=== PATIENT | female | born 1975 | race Caucasian/White ===

== ENCOUNTER 2022-12-15 17:27 | Emergency (ER) | payer OTHER, MEDICAID, SELFPAY ==
[2022-12-15 18:10] VITALS: BP 154/91; PULSE 81; RESP 20; TEMP 37.2; O2SAT 100; BMI 27.4
--- NOTE | 2022-12-15 18:24 | EXP.UTC ---
Discharge Plan Disposition Patient Disposition: Home, Self-Care Condition: Good Prescriptions Prescriptions: New phenazopyridine [Pyridium] 200 mg tablet 200 mg PO Q8H 2 Days Qty: 6 0RF sulfamethoxazole-trimethoprim [Bactrim DS] 800-160 mg Tablet 1 tab PO BID Qty: 14 0RF Referrals Follow up/Referrals: Clayton German DO [Primary Care Provider] - See instructions Activity Restrictions/Add. Instructions Additional Instructions/Restrictions: Drink plenty of fluids. Take tylenol or ibuprofen for pain or fever. Take the medications as directed. Follow up with your regular doctor. GO TO THE ER FOR ANY WORSENING SYMPTOMS The pyridium will make your urine turn orange, this is an expected side effect. It will stain your clothes if it comes into contact with them. We will culture the urine. That will tell what bacteria is causing your infection and which antibiotics will treat it best. Sometimes the first antibiotic we prescribe turns out to not work against different bacteria. So, make sure you follow up within 3 days if you are not getting better. Clinical Impressions Clinical Impression: UTI (urinary tract infection) Instructions Patient Instructions: DI for Urinary Tract Infection (UTI) Discharge ED Provider: Torsten Jimenez [facility] General Stated complaint: possible uti Time Seen by Provider: 12/15/22 18:24 History of Present Illness Provider Complaint: She states that for the past 2 days she has had dysuria, urinary frequency and low back pain. Related Data Previous Rx's Medication Instructions Recorded phenazopyridine 200 mg tablet 200 mg PO Q8H 2 days #6 tabs 12/15/22 (Pyridium) sulfamethoxazole 800 1 tab PO BID #14 tabs 12/15/22 mg-trimethoprim 160 mg tablet (Bactrim DS) Allergies Allergy/AdvReac Type Severity Reaction Status Date / Time No Known Allergies Allergy Verified 12/15/22 18:29 [facility] Disclaimer: The information contained in this section may have been updated after the patient was seen, as this information can be updated by other users. Social History Smoking Status: Never smoker alcohol intake: never current occupational status: employed Travel in the last 8 weeks: None ROS Obtained: Yes All systems reviewed & no additional complaints except as documented Constitutional Constitutional: Reports system reviewed and no additional complaints, except as documented, Denies chills and Denies fever(s) Eyes Eyes: Denies eye discharge ENT Ears, Nose, Mouth, and Throat: Denies dysphagia, Denies sore throat and Denies throat swelling Cardiovascular Cardiovascular: Denies chest pain and Denies dyspnea Respiratory Respiratory: Denies chest congestion, Denies cough and Denies dyspnea Gastrointestinal Gastrointestingal: Denies abdominal pain, constipation, diarrhea, dysphagia, nausea or vomiting Genitourinary Female Genitourinary: Reports as per HPI, Reports dysuria, Reports sexual dysfunction, Reports urinary frequency, Denies urinary incontinence and Reports urinary hesitancy Musculoskeletal Musculoskeletal: Denies arthralgias and Reports back pain Integumentary/Breasts Skin/Breast: Denies rash Neurologic Neurologic: Denies paresthesias Allergic/Immunologic Allergic/Immunologic: Denies throat swelling Physical Exam General General appearance: alert and in no apparent distress Head Head exam: atraumatic and normocephalic Eye Eye exam: Present normal appearance, PERRL and EOMI ENT ENT exam: Present normal exam, mucous membranes moist, TM's normal bilaterally and normal external ear exam Neck Neck exam: Present normal inspection, full ROM and trachea midline; Absent tenderness, meningismus or lymphadenopathy Chest Chest inspection: Present normal inspection and symmetric chest wall rise; Absent tenderness Respiratory Respiratory exam: Present normal lung sounds bilaterally; Absent respi
[2022-12-15 18:31] LABS: Apearance,Urine Clear (Clear); Color,Urine Yellow (Yellow); Glucose,Urine (UA) Negative (Negative); Protein,Urine Negative (Negative); Specific Gravity, Urine 1.015 (1.005-1.030)
[2022-12-15 18:32] LABS: Bilirubin,Urine Negative (Negative); Blood, Urine Trace (Negative); Ketones,Urine Negative (Negative); UTC Leukocyte Esterase,Urine 3+ (Negative); UTC Nitrate,Urine Negative (Negative); Urobilinogen,Urine 0.2 EU/dl (0.2)
[2022-12-15 19:22] VITALS: BP 154/91; PULSE 81; RESP 20; TEMP 37.2; O2SAT 100
== END 2022-12-15 19:21 | disposition home or self-care (01) ==
PROVIDERS: Emergency Provider Nurse Practitioner Family; PCP Family Medicine
DX: N39.0 Urinary tract infection, site not specified (principal); B96.20 Unspecified Escherichia coli [E. coli] as the cause of diseases classified elsewhere
CPT/HCPCS: 81003; 87086; 87088; 87186; 99212; 99214; G0463

== ENCOUNTER 2023-04-15 09:37 | Emergency (ER) | payer OTHER, MEDICAID, SELFPAY ==
[2023-04-15 09:44] LABS: Microscopic, Urine URINE MICROSCOPIC (MICROSCOPIC)
[2023-04-15 09:45] VITALS: BP 157/80; PULSE 121; RESP 20; TEMP 37.3; O2SAT 94; BMI 27.1
[2023-04-15 09:49] LABS: Appearance,Urine SL CLOUDY (Clear); Bilirubin,Urine Negative (Negative); Blood, Urine 2+ (Negative); Color,Urine YELLOW (Yellow); Glucose,Urine (UA) Negative (Negative); Ketones,Urine Negative (Negative); Leukocyte Esterase,Urine 2+ (Negative); Nitrate,Urine POSITIVE (Negative); Protein,Urine 1+ (Negative); Urobilinogen,Urine 0.2 EU/dl (0.2)
[2023-04-15 10:00] VITALS: BP 118/68; PULSE 104; O2SAT 96
[2023-04-15 10:05] LABS: Bacteria,Urine 3+ /lpf; Fine Granular Casts,Urine Occasional #/lpf (0); Mucus,Urine Trace /lpf; WBC,Urine 50-100 #/hpf (0-3)
--- NOTE | 2023-04-15 10:14 | PC.NURSE ---
Rounded on patient; no needs at this time. Family at BS
[2023-04-15 10:27] LABS: Basophils % 0.1 % (0.1-2.0); Eosinophils % 0.4 % (0.1-12.0); Hematocrit 42.9 % (37.0-47.0); Lymphocytes # 0.6 K/mm3 (0.7-4.5); Lymphocytes % 5.5 % (10-50); Mean Corpuscular HGB Conc 32.7 g/dL (31.8-35.4); Mean Corpuscular Hemoglobin 29.9 pg (27.0-31.2); Mean Corpuscular Volume 91.5 fl (81-99); Mean Platelet Volume 8.8 fl (7.4-10.4); Monocytes # 0.7 K/mm3 (0.1-1.0); Monocytes % 6.4 % (1.7-9.3); Neutrophils # 9.9 K/mm3 (1.8-7.8); Neutrophils % 87.5 % (37.0-80.0); Platelet Count 241 K/mm3 (142-424); Red Blood Count 4.69 M/mm3 (4.20-5.40); Red Cell Distribution Width 12.9 % (11.5-17.5); White Blood Count 11.3 K/mm3 (4.8-10.8)
[2023-04-15 10:30] LABS: Urine Pregnancy, HCG Qual. Negative (Negative)
[2023-04-15 10:32] LABS: MANUAL DIFFERENTIAL MANUAL DIFFERENTIAL (MANUAL DIFF)
[2023-04-15 10:34] LABS: Alanine Aminotransferase 23 U/L (12-78); Albumin Level 4.3 g/dl (3.5-5.0); Albumin/Globulin Ratio 1.4 (1.1-1.8); Alkaline Phosphatase 79 U/L (38-126); Anion Gap 11.6 mEq/L (5-15); Aspartate Amino Transferase 29 U/L (14-36); Bilirubin,Total 0.7 mg/dl (0.2-1.3); Blood Urea Nitrogen 12 mg/dl (7-17); Calcium 8.9 mg/dl (8.4-10.2); Carbon Dioxide 27 mmol/L (22.0-30.0); Chloride 105 mmol/L (98-107); Creatinine Clearance Estimated 94 mL/min (50-200); Estimated Glomerular Filt Rate 78 ml/min (>60); GFR (African American) 94 ML/MIN (>60); Globulin 3.1 g/dL (1.3-3.2); Glucose 109 mg/dl (74-100); Potassium 3.6 mmoL/L (3.5-5.1); Sodium 140 mmol/L (136-145); Total Protein,Serum 7.4 g/dl (6.3-8.2)
[2023-04-15 10:49] LABS: Lymphocytes % 1 % (10-50); Monocytes % 8 % (2-9); Neutrophils % 91 % (42-76); Platelet Estimate Normal; RBC Morphology Normal; Total Cells Counted 100
--- NOTE | 2023-04-15 11:02 | HMH.EDGENADL ---
Discharge Plan Disposition Patient Disposition: Home, Self-Care Prescriptions Prescriptions: New cefdinir 300 mg capsule 300 mg PO BID 14 Days Qty: 28 0RF ondansetron 4 mg tablet,disintegrating 4 mg PO Q6H PRN (Reason: nausea and vomiting) Qty: 10 0RF No Action phenazopyridine [Pyridium] 200 mg tablet 200 mg PO Q8H 2 Days Qty: 6 0RF nitrofurantoin monohyd/m-cryst [Macrobid] 100 mg capsule 100 mg PO Q12H 7 Days Qty: 14 0RF Rx Instructions: must administer with a meal/food Referrals Follow up/Referrals: Provider,Referral, MD [Primary Care Provider] - See instructions Activity Restrictions/Add. Instructions Additional Instructions/Restrictions: Take antibiotic twice daily as prescribed. Zofran for nausea. Take Tylenol 1000 mg every 6 hours (4 times daily) and ibuprofen 400 mg every 6 hours (4 times daily) as needed with food and water to prevent GI upset and kidney damage. Be sure to stay plenty hydrated. See your family doctor within 48 hours to establish care and ensure improvement in symptoms as well as repeat urine. If you have any worsening of your condition or any other concerning signs or symptoms, return to the emergency department or your primary care doctor for further evaluation. Clinical Impressions Clinical Impression: Pyelonephritis Instructions Patient Instructions: DI for Acute Abdominal Pain Discharge ED Provider: Rupert Freire General Adult HPI General Chief complaint: Abdominal Pain Stated complaint: chills, back pain Time Seen by Provider: 04/15/23 09:42 Mode of Arrival: Ambulatory Source of Information: Patient Limitations: No Limitations Description of Symptoms (Recalled from ER Triage Doc. by RN): pt to ed states she was driving yesterday, had sudden onset of mid back pain, chills. pt states she woke up today had an episode of emesis associated with abd cramping. History of Present Illness HPI narrative: 47-year-old female presenting with left flank pain. Patient states multifactorial, she was driving when she had sudden onset left flank pain. Radiates anteriorly to her left lower quadrant. Associated with fevers, chills, diaphoresis. Vomiting is nonbloody, nonbilious as well. Denies dysuria or hematuria, frequency or urgency. Has associated suprapubic abdominal pain. Denies abnormal vaginal discharge or bleeding, constipation, diarrhea, history of kidney stones, or any other concerns. Related Data Previous Rx's Medication Instructions Recorded phenazopyridine 200 mg tablet 200 mg PO Q8H 2 days #6 tabs 12/15/22 (Pyridium) nitrofurantoin 100 mg PO Q12H 7 days #14 caps 12/23/22 monohydrate/macrocrystals 100 mg capsule (Macrobid) cefdinir 300 mg capsule 300 mg PO BID 14 days #28 caps 04/15/23 ondansetron 4 mg disintegrating 4 mg PO Q6H PRN nausea and 04/15/23 tablet vomiting #10 tabs Allergies Allergy/AdvReac Type Severity Reaction Status Date / Time sulfamethoxazole Allergy Verified 12/23/22 11:13 [From Bactrim] trimethoprim [From Bactrim] Allergy Verified 12/23/22 11:13 [facility] Disclaimer: The information contained in this section may have been updated after the patient was seen, as this information can be updated by other users. Social History (Updated 12/16/22 @ 15:13 by Torsten Jimenez APRN) Smoking Status: Never smoker alcohol intake: never current occupational status: employed Travel in the last 8 weeks: None ROS Obtained: Yes All systems reviewed & no additional complaints except as documented Physical Exam General General appearance: alert, in no apparent distress and other ( ) Head Head exam: atraumatic and normocephalic Eye Eye exam: Present normal appearance, PERRL and EOMI ENT ENT exam: Present mucous membranes moist Neck Neck exam: Present normal inspection, full ROM and trachea midline Respiratory Respiratory exam: Absent respiratory distress, wheezes, stridor, accessory muscle use or prolonged
[2023-04-15 11:10] LABS: Lactic Acid 0.8 mmol/L (0.7-2.1)
[2023-04-15 12:38] VITALS: BP 121/76; PULSE 87; O2SAT 100
[2023-04-15 12:40] VITALS: BP 121/76; PULSE 87; RESP 17; TEMP 36.8; O2SAT 100
== END 2023-04-15 12:40 | disposition home or self-care (01) ==
PROVIDERS: Emergency Provider Emergency Medicine
DX: N12 Tubulo-interstitial nephritis, not specified as acute or chronic (principal)
CPT/HCPCS: 80053; 81001; 81025; 83605; 85007; 85025; 87040; 87077; 87086; 87088; 87186; 96361; 96372; 96374; 96375; 99285; J0696; J2405

== ENCOUNTER 2023-04-16 10:35 | Inpatient (IN) | payer OTHER, MEDICAID, SELFPAY ==
[2023-04-16 10:37] VITALS: BP 135/69; PULSE 104; RESP 16; TEMP 36.6; O2SAT 100; BMI 27.1
--- NOTE | 2023-04-16 10:59 | PC.NURSE ---
Evelin provided. MD at bedside. Pt updated on plan of care. Call light within reach. No further complaints. 12/22 pain.
[2023-04-16 11:04] LABS: Basophils % 0.2 % (0.1-2.0); Eosinophils # 0.1 K/mm3 (0.0-0.4); Eosinophils % 0.8 % (0.1-12.0); Hematocrit 40.4 % (37.0-47.0); Hemoglobin 12.7 g/dL (12.2-16.2); Lymphocytes # 1.1 K/mm3 (0.7-4.5); Mean Corpuscular HGB Conc 31.4 g/dL (31.8-35.4); Mean Corpuscular Hemoglobin 29.8 pg (27.0-31.2); Mean Corpuscular Volume 94.6 fl (81-99); Mean Platelet Volume 8.7 fl (7.4-10.4); Monocytes # 0.3 K/mm3 (0.1-1.0); Monocytes % 3.3 % (1.7-9.3); Neutrophils # 7.5 K/mm3 (1.8-7.8); Neutrophils % 83.6 % (37.0-80.0); Platelet Count 209 K/mm3 (142-424); Red Blood Count 4.27 M/mm3 (4.20-5.40); White Blood Count 8.9 K/mm3 (4.8-10.8)
--- NOTE | 2023-04-16 11:09 | PC.NURSE ---
Additional warm blankets provided. No further complaints.
[2023-04-16 11:11] LABS: Lactic Acid 1.8 mmol/L (0.7-2.1)
[2023-04-16 11:12] LABS: Anion Gap 10.5 mEq/L (5-15); Blood Urea Nitrogen 9 mg/dl (7-17); Calcium 8.7 mg/dl (8.4-10.2); Carbon Dioxide 28 mmol/L (22.0-30.0); Chloride 104 mmol/L (98-107); Creatinine Clearance Estimated 94 mL/min (50-200); Estimated Glomerular Filt Rate 78 ml/min (>60); GFR (African American) 94 ML/MIN (>60); Glucose 115 mg/dl (74-100); Potassium 3.5 mmoL/L (3.5-5.1); Sodium 139 mmol/L (136-145)
[2023-04-16 11:14] LABS: Microscopic, Urine URINE MICROSCOPIC (MICROSCOPIC)
[2023-04-16 11:19] LABS: Appearance,Urine CLEAR (Clear); Bilirubin,Urine Negative (Negative); Blood, Urine 3+ (Negative); Color,Urine YELLOW (Yellow); Glucose,Urine (UA) Negative (Negative); Ketones,Urine TRACE (Negative); Leukocyte Esterase,Urine 1+ (Negative); Nitrate,Urine Negative (Negative); Protein,Urine TRACE (Negative); Specific Gravity, Urine 1.025 (1.005-1.030)
--- NOTE | 2023-04-16 11:26 | PC.NURSE ---
notified care management of admission, spoke with [place] notified lab of new orders on pt.
--- NOTE | 2023-04-16 11:34 | HMH.EDGENADL ---
Discharge Plan Disposition Patient Disposition: Admitted Chief Complaint: Recheck/Abnormal Lab/Rx Prescriptions Prescriptions: No Action phenazopyridine [Pyridium] 200 mg tablet 200 mg PO Q8H 2 Days Qty: 6 0RF nitrofurantoin monohyd/m-cryst [Macrobid] 100 mg capsule 100 mg PO Q12H 7 Days Qty: 14 0RF Rx Instructions: must administer with a meal/food cefdinir 300 mg capsule 300 mg PO BID 14 Days Qty: 28 0RF ondansetron 4 mg tablet,disintegrating 4 mg PO Q6H PRN (Reason: nausea and vomiting) Qty: 10 0RF Referrals Follow up/Referrals: Provider,Referral, MD [Primary Care Provider] - See instructions Clinical Impressions Clinical Impression: UTI (urinary tract infection), Pyelonephritis, Bacteremia Discharge ED Provider: Rupert rFeire General Adult HPI General Chief complaint: Recheck/Abnormal Lab/Rx Stated complaint: irragular labs Time Seen by Provider: 04/16/23 10:39 Mode of Arrival: Ambulatory Source of Information: Patient Limitations: No Limitations Description of Symptoms (Recalled from ER Triage Doc. by RN): Pt presents to ED r/t ER MD Freire request for pt to come back to ER r/t blood cultures from yesterday. Pt seen in this ED yesterday treated for UTI d/c on cefdinir. Pt reports did have fever lastnight with chills and has continued to have lower back pain. History of Present Illness HPI narrative: This is a 47-year-old female with history of recently diagnosed UTI 1 day prior to arrival presenting with medical evaluation after positive blood cultures. Patient was seen by me 1 day prior to arrival and diagnosed with pyelonephritis. Started on cefdinir after 1 dose of ceftriaxone IV in the emergency department. Blood cultures returned positive today for E. coli, so patient was contacted. Patient states last fever was 1 night prior to arrival and responsive to Tylenol and Motrin. No more vomiting, dysuria or hematuria. Patient states she feels better overall, but still generally poor. Related Data Previous Rx's Medication Instructions Recorded phenazopyridine 200 mg tablet 200 mg PO Q8H 2 days #6 tabs 12/15/22 (Pyridium) nitrofurantoin 100 mg PO Q12H 7 days #14 caps 12/23/22 monohydrate/macrocrystals 100 mg capsule (Macrobid) cefdinir 300 mg capsule 300 mg PO BID 14 days #28 caps 04/15/23 ondansetron 4 mg disintegrating 4 mg PO Q6H PRN nausea and 04/15/23 tablet vomiting #10 tabs Allergies Allergy/AdvReac Type Severity Reaction Status Date / Time sulfamethoxazole Allergy Verified 12/23/22 11:13 [From Bactrim] trimethoprim [From Bactrim] Allergy Verified 12/23/22 11:13 [facility] Disclaimer: The information contained in this section may have been updated after the patient was seen, as this information can be updated by other users. Social History (Updated 12/16/22 @ 15:13 by Torsten Jimenez APRN) Smoking Status: Never smoker alcohol intake: never current occupational status: employed Travel in the last 8 weeks: None ROS Obtained: Yes All systems reviewed & no additional complaints except as documented Physical Exam General General appearance: alert, in no apparent distress and other ( ) Head Head exam: atraumatic and normocephalic Eye Eye exam: Present normal appearance, PERRL and EOMI ENT ENT exam: Present mucous membranes moist Neck Neck exam: Present normal inspection, full ROM and trachea midline Respiratory Respiratory exam: Absent respiratory distress, wheezes, stridor, accessory muscle use or prolonged expiratory phase Cardiovascular Cardiovascular exam: Present regular rate and normal rhythm Abdominal Exam Abdominal exam: Present soft; Absent distention, tenderness, guarding, rebound, rigidity or normal bowel sounds Extremities Exam Extremities exam: Absent edema Neurological Exam Neurological exam: Present alert, oriented X3, CN II-XII intact and normal gait; Absent motor sensory deficit Skin Skin exam: Present warm and dry
[2023-04-16 11:37] LABS: Bacteria,Urine 1+ /lpf; WBC,Urine 20-50 #/hpf (0-3)
--- NOTE | 2023-04-16 11:43 | PC.NURSE ---
ice water provided. pt c/o left sided headache. MD notified. Awaiting orders.
[2023-04-16 11:55] LABS: Procalcitonin 0.203 ng/mL (0.0-2.0)
--- NOTE | 2023-04-16 12:03 | PC.NURSE ---
warehouse administrative assistant reports working on bed assignment for pt.
--- NOTE | 2023-04-16 12:14 | PC.NURSE ---
Report provided to JACQUIE Ramos
--- NOTE | 2023-04-16 12:15 | PC.NURSE ---
Patient updated on plan of care; report provided to inpatient.
--- NOTE | 2023-04-16 12:17 | HMH.PHAINT1 ---
- Pharmacy Intervention Comments: MEDICATION RECONCILIATION COMPLETED ON PATIENT USING DISCHARGE SUMMARY FROM ER VISIT YESTERDAY. -DOMINIC CASTRO, ROGERD
[2023-04-16 12:21] VITALS: BP 135/69; PULSE 98; RESP 16; TEMP 36.6; O2SAT 100
[2023-04-16 12:25] VITALS: BP 138/80; PULSE 100; RESP 18; TEMP 36.7; O2SAT 100; BMI 29.9
--- NOTE | 2023-04-16 13:37 | EXP.HP ---
History of Present Illness *Admission Date: 04/16/23 *Reason for visit:: positive blood cultures *History of present illness: February is a 47 year old female who presented to the ED after being instructed to come because of blood cultures growing GNR. Yesterday she presented to the ED with 1 day of nausea, vomiting and left flank pain; she was found to have a UTI and recommended admission by the ED provider but pt decided to receive treatment at home and said she would come back if cultures were concerning. Her urine culture is growing >100K E. coli. She has been very healthy as far as she is aware; she doesn't take medications on a regular basis and has never had kidney stones. The one other time she had a UTI was around a month ago for which she completed antibiotics. she denies dysuria, chest pain, shortness of breath, diarrhea and abdominal pain. Initial vitals: BP 135/69 - P 104 - RR 16 - SpO2 100% RA - T 97.9 F Initial workup: CBC with 8.9K wbcs procalcitonin is 0.2, lactate 1.8 ua with 20-50 wbcs urine culture collected blood cultures collected blood culture from 04/15 with GNR Urine culture from 04/15 with >100K E. coli noriega sensitive PFSH PFSH Disclaimer: The information contained in this section may have been updated after the patient was seen, as this information can be updated by other users. Social History (Updated 12/16/22 @ 15:13 by Torsten Jimenez APRN) Smoking Status: Never smoker alcohol intake: never current occupational status: employed Travel in the last 8 weeks: None Review of Systems Review of Systems Review of systems:: pertinent systems reviewed and negative unless documented below Constitutional Constitutional: Reports headache(s) ENT Ears, Nose, Mouth, and Throat: Reports headache(s) *Musculoskeletal Musculoskeletal: Reports back pain *Neurologic Neurologic: Reports headache(s) Meds Home Medications and Allergies Home Medications Medication Instructions Recorded Confirmed Type cefdinir 300 mg capsule 300 mg PO BID Infection 04/16/23 04/16/23 History ondansetron 4 mg disintegrating 4 mg PO Q6HP PRN nausea and 04/16/23 04/16/23 History tablet vomiting New Prescriptions to Start Prescriptions: Allergies Allergy/AdvReac Type Severity Reaction Status Date / Time sulfamethoxazole Allergy Verified 12/23/22 11:13 [From Bactrim] trimethoprim [From Bactrim] Allergy Verified 12/23/22 11:13 Exam Data for Last 24 hours Vital signs and Labs for Last 24 Hours: Temp Pulse Resp BP Pulse Ox O2 Del Method 98.0 F 100 H 18 138/80 100 Room Air 04/16/23 12:25 04/16/23 12:25 04/16/23 12:25 04/16/23 12:25 04/16/23 12:25 04/16/23 13:27 Laboratory Results - last 24 hr 04/16/23 10:52: Procalcitonin 0.203 04/16/23 10:58: WBC 8.9, RBC 4.27, Hgb 12.7, Hct 40.4, MCV 94.6, MCH 29.8, MCHC 31.4 L, RDW 13.0, Plt Count 209, MPV 8.7, Neut % (Auto) 83.6 H, Lymph % (Auto) 12.0, [place] % (Auto) 3.3, Eos % (Auto) 0.8, Baso % (Auto) 0.2, Neut # (Auto) 7.5, Lymph # (Auto) 1.1, [place] # (Auto) 0.3, Eos # (Auto) 0.1, Baso # (Auto) 0.0, Sodium 139, Potassium 3.5, Chloride 104, Carbon Dioxide 28, Anion Gap 10.5, BUN 9, Creatinine 0.80, Estimated Creat Clear 94, Estimated GFR 78, Est GFR ( Amer) 94, Glucose 115 H, Lactate 1.8, Calcium 8.7 04/16/23 11:00: Urine Color Yellow, Urine Appearance Clear, Urine pH 6.0, Ur Specific [place] 1.025, Urine Protein Trace, Urine Glucose (UA) Negative, Urine Ketones Trace, Urine Blood 3+, Urine Nitrate Negative, Urine Bilirubin Negative, Urine Urobilinogen 1.0, Ur Leukocyte Esterase 1+ A, Urine RBC 5-10, Urine WBC 20-50, Urine Bacteria 1+ I & O for Last 24 hours: Intake & Output 04/13/23 04/14/23 04/15/23 04/16/23 23:59 23:59 23:59 23:59 Weight 74.134 kg Constitutional Constitutional: no acute distress *Routine HEENT Exam Head: Present normocephalic Eye: Present EOMI and PERRL ENT: Present mucous membranes moist *Routine Neck Exa
--- NOTE | 2023-04-16 14:33 | CT_ITS ---
FINAL REPORT CLINICAL HISTORY: pyelonephritis COMPARISON: None FINDINGS: Axial CT images of the abdomen and pelvis were obtained without intravenous contrast. Coronal and sagittal reformatted images were also obtained.This study was performed with techniques to keep radiation doses as low as reasonably achievable (ALARA). Individualized dose reduction techniques using automated exposure control or adjustment of mA and/or kV according to the patient's size were employed. Abdomen:The lung bases are clear. There is no evidence of renal stone or hydronephrosis. There is slight enlargement of the right kidney with perinephric stranding which may represent edema or possibly pyelonephritis. The liver, spleen and pancreas have an unremarkable, unenhanced appearance. The gallbladder is collapsed. No mass or adenopathy is seen. No inflammatory process is identified. Pelvis: Images of the pelvis reveal no evidence of ureteral dilation or ureteral stone.No mass or abnormal fluid collection is identified. The appendix is normal in appearance. There is a small amount of free fluid in the pelvis, physiologic or reactive. IMPRESSION: No renal or ureteral stone, or hydronephrosis. There is slight enlargement of the right kidney with perinephric stranding that may represent edema or pyelonephritis. A small amount of pelvic free fluid is present. This is most likely physiologic or reactive. Reviewed, Interpreted and Dictated by Gustavo Garsia III, MD Transcribed by Eva Guerra Authenticated and [facility]
[2023-04-16 16:00] VITALS: BP 109/63; PULSE 99; RESP 18; TEMP 36.7; O2SAT 97
--- NOTE | 2023-04-16 17:31 | PC.NURSE ---
A&OX4. PT TOLERATING RA WELL. HAS C/O SLIGHT MULLINS X1, TX PER MAR, EFFECTIVENESS NOTED. PT HAS BEEN RESTING IN BED T/O SHIFT, NO OTHER NEEDS OR C/O NOTED. VSS.
[2023-04-16 20:00] VITALS: BP 120/78; PULSE 78; RESP 18; O2SAT 100
[2023-04-17] VITALS (7 sets, daily range): BP systolic 102–122; BP diastolic 60–79; PULSE 70–97; RESP 18–20; TEMP 36.7–38.5; O2SAT 97–100
[2023-04-17 06:25] LABS: Chloride 108 mmol/L (98-107)
[2023-04-17 06:26] LABS: Potassium 3.6 mmoL/L (3.5-5.1); Sodium 139 mmol/L (136-145)
[2023-04-17 06:29] LABS: Anion Gap 7.6 mEq/L (5-15); Blood Urea Nitrogen 4 mg/dl (7-17); Calcium 7.9 mg/dl (8.4-10.2); Carbon Dioxide 27 mmol/L (22.0-30.0); Creatinine Clearance Estimated 139 mL/min (50-200); Estimated Glomerular Filt Rate 108 ml/min (>60); GFR (African American) 131 ML/MIN (>60); Glucose 106 mg/dl (74-100)
[2023-04-17 06:30] LABS: Basophils % 0.2 % (0.1-2.0); Eosinophils % 0.3 % (0.1-12.0); Hemoglobin 12.1 g/dL (12.2-16.2); Lymphocytes # 1.5 K/mm3 (0.7-4.5); Lymphocytes % 21.2 % (10-50); Mean Corpuscular HGB Conc 31.9 g/dL (31.8-35.4); Mean Corpuscular Hemoglobin 29.5 pg (27.0-31.2); Mean Corpuscular Volume 92.6 fl (81-99); Monocytes # 0.6 K/mm3 (0.1-1.0); Monocytes % 8.4 % (1.7-9.3); Neutrophils % 69.9 % (37.0-80.0); Platelet Count 202 K/mm3 (142-424); Red Cell Distribution Width 12.9 % (11.5-17.5); White Blood Count 7.1 K/mm3 (4.8-10.8)
--- NOTE | 2023-04-17 17:19 | P.PN_ITS ---
Subjective *Date: 04/17/23 *Time: 09:00 Interval history: no acute events overnight continues to have left sided headache no dysuria no back pain Exam Data for Last 24 hours Vital signs and Labs for Last 24 Hours: Temp Pulse Resp BP Pulse Ox O2 Del Method 98.8 F 91 H 18 115/75 99 Room Air 04/17/23 16:00 04/17/23 16:00 04/17/23 16:00 04/17/23 16:00 04/17/23 16:00 04/17/23 16:00 Laboratory Results - last 24 hr 04/17/23 05:57: WBC 7.1, RBC 4.10 L, Hgb 12.1 L, Hct 38.0, MCV 92.6, MCH 29.5, MCHC 31.9, RDW 12.9, Plt Count 202, MPV 9.0, Neut % (Auto) 69.9, Lymph % (Auto) 21.2, [place] % (Auto) 8.4, Eos % (Auto) 0.3, Baso % (Auto) 0.2, Neut # (Auto) 5.0, Lymph # (Auto) 1.5, [place] # (Auto) 0.6, Eos # (Auto) 0.0, Baso # (Auto) 0.0, Sodium 139, Potassium 3.6, Chloride 108 H, Carbon Dioxide 27, Anion Gap 7.6, BUN 4 L D, Creatinine 0.60 D, Estimated Creat Clear 139, Estimated GFR 108, Est GFR ( Amer) 131 D, Glucose 106 H, Calcium 7.9 L I & O for Last 24 hours: Intake & Output 04/14/23 04/15/23 04/16/23 04/17/23 23:59 23:59 23:59 23:59 Intake Total 720 / 720 960 / 960 Output Total 0 / 0 0 / 0 Balance 720 / 720 960 / 960 Weight 74.134 kg 74.135 kg Microbiology Reports for the Last 24 Hours: Microbiology 04/16/23 11:00 Urine,Clean Catch Urine Culture - Preliminary NO GROWTH AFTER 24 HOURS Constitutional Constitutional: no acute distress *Routine HEENT Exam Head: Present normocephalic Eye: Present EOMI and PERRL ENT: Present mucous membranes moist *Routine Neck Exam Neck: Present supple; Absent lymphadenopathy *Routine Respiratory Exam Respiratory: Present CTA bilaterally *Routine Cardiovascular Exam Cardiovascular: Present RRR *Routine Abdominal Exam Abdominal: Present soft and normoactive bowel sounds; Absent tenderness *Routine Extremities Exam Extremities: Absent cyanosis, clubbing or edema *Routine Skin Exam Skin: Present warm; Absent rash *Routine Neurological Exam Neurological: Present alert and oriented X3 Assessment and Plan *Assessment and plan (1) Bacteremia: Status: Acute Category: Medical Code(s): R78.81 - Bacteremia (2) Pyelonephritis: Status: Acute Category: Medical Code(s): N12 - Tubulo-interstitial nephritis, not specified as acute or chronic (3) UTI (urinary tract infection): Status: Acute Category: Medical Code(s): N39.0 - Urinary tract infection, site not specified Plan #bacteremia, GNR #R pyelonephritis, e. coli #headache Continue Rocephin 04/15-present Continue NS @ 125mL/hr Will need to follow up on blood cultures start scheduled tylenol for headache full code regular diet
[2023-04-18] VITALS: BP 101/52; PULSE 78; RESP 16; TEMP 37.1; O2SAT 98
[2023-04-18 04:00] VITALS: BP 104/59; PULSE 85; RESP 16; TEMP 36.8; O2SAT 98
--- NOTE | 2023-04-18 05:58 | PC.NURSE ---
Pt medicated PRN per NOV for fever this shift. Pt has had no complaints. Pt has ambulated to and tolerated well. NS infusing @ 125 ml/hr.
[2023-04-18 07:25] VITALS: BP 137/83; PULSE 88; RESP 17; TEMP 36.9; O2SAT 99
[2023-04-18 11:13] VITALS: BP 115/76; PULSE 76; RESP 17; TEMP 36.9; O2SAT 100
--- NOTE | 2023-04-18 11:51 | EXP.DC.SUM ---
General Admission date:: 04/16/23 Discharge date: 04/18/23 HPI HPI HPI: February David is a 47 year old female who presented to the ED after being instructed to come because of blood cultures growing GNR. Yesterday she presented to the ED with 1 day of nausea, vomiting and left flank pain; she was found to have a UTI and recommended admission by the ED provider but pt decided to receive treatment at home and said she would come back if cultures were concerning. Her urine culture is growing >100K E. coli. She has been very healthy as far as she is aware; she doesn't take medications on a regular basis and has never had kidney stones. The one other time she had a UTI was around a month ago for which she completed antibiotics. she denies dysuria, chest pain, shortness of breath, diarrhea and abdominal pain. Initial vitals: BP 135/69 - P 104 - RR 16 - SpO2 100% RA - T 97.9 F Initial workup: CBC with 8.9K wbcs procalcitonin is 0.2, lactate 1.8 ua with 20-50 wbcs urine culture collected blood cultures collected blood culture from 04/15 with GNR Urine culture from 04/15 with >100K E. coli noriega sensitive Hospital Course Hospital Course Hospital Course: #bacteremia, GNR #R pyelonephritis, e. coli #headache The patient had negative repeat blood cultures at 48hrs on day of discharge Urine culture and blood cultures from 04/15/23 grew e coli, noriega sensitive. She received 3 days of IV rocephin and was discharged on 7 days of augmentin She will follow up with her PCP in 1 week She had a mild headache on day of discharge, improved from the day prior, and was instructed to take tylenol for this. Exam Data for Last 24 hours Vital signs and Labs for Last 24 Hours: Temp Pulse Resp BP Pulse Ox O2 Del Method 98.4 F 76 17 115/76 100 Room Air 04/18/23 11:13 04/18/23 11:13 04/18/23 11:13 04/18/23 11:13 04/18/23 11:13 04/18/23 11:13 I & O for Last 24 hours: Intake & Output 04/15/23 04/16/23 04/17/23 04/18/23 23:59 23:59 23:59 23:59 Intake Total 720 / 720 1080 / 5712 3970 / 3970 Output Total 0 / 0 0 / 0 0 / 0 Balance 720 / 720 8583 / 6074 0220 / 3970 Weight 74.134 kg 74.135 kg Microbiology Reports for the Last 24 Hours: Microbiology 04/16/23 11:00 Urine,Clean Catch Urine Culture - Final NO GROWTH AFTER 48 HOURS 04/16/23 10:52 Blood Blood Culture - Preliminary NO GROWTH AFTER 48 HOURS 04/16/23 10:58 Blood Blood Culture - Preliminary NO GROWTH AFTER 48 HOURS Constitutional Constitutional: no acute distress *Routine HEENT Exam Head: Present normocephalic Eye: Present EOMI and PERRL ENT: Present mucous membranes moist *Routine Neck Exam Neck: Present supple; Absent lymphadenopathy *Routine Respiratory Exam Respiratory: Present CTA bilaterally *Routine Cardiovascular Exam Cardiovascular: Present RRR *Routine Abdominal Exam Abdominal: Present soft and normoactive bowel sounds; Absent tenderness *Routine Extremities Exam Extremities: Absent cyanosis, clubbing or edema *Routine Skin Exam Skin: Present warm; Absent rash *Routine Neurological Exam Neurological: Present alert and oriented X3 Results Data Completed and Pending Labs on day of discharge: Preliminary micro results at discharge 04/16/23 10:52 Blood Culture - Preliminary Blood NO GROWTH AFTER 48 HOURS 04/16/23 10:58 Blood Culture - Preliminary Blood NO GROWTH AFTER 48 HOURS DS: Diagnosis Discharge Diagnosis (1) Bacteremia: Status: Acute Code(s): R78.81 - Bacteremia (2) Pyelonephritis: Status: Acute Code(s): N12 - Tubulo-interstitial nephritis, not specified as acute or chronic (3) UTI (urinary tract infection): Status: Acute Code(s): N39.0 - Urinary tract infection, site not specified Meds Home Medications and Allergies Home Medications Medication Instructions Recorded Confirmed T
--- NOTE | 2023-04-18 12:24 | HMH.PHAINT1 ---
Pharmacy Intervention Comments: DISCHARGE MEDICATION COUNSELING PROVIDED. DISCUSSED STOPPING THE CEFDINIR AND STARTING AUGMENTIN (THREE TIMES DAILY, FOR INFECTION, START TOMORROW, MAY CAUSE UPSET STOMACH, TAKING WITH FOOD CAN HELP ALLEVIATE SYMPTOM). PATIENT VERBALIZED NO QUESTIONS AT THIS TIME.
--- NOTE | 2023-04-21 14:46 | CARE MANAGER ---
Called and spoke with patient in regards to recent discharge. Patient stated that she is doing well. No complaints or concerns at time of call.
== END 2023-04-18 13:07 | disposition home or self-care (01) | DRG 690 ==
LOC: ER 11:37 → 2ND 12:10
PROVIDERS: Admitting Provider Internal Medicine; Emergency Provider Emergency Medicine; Visit Provider Internal Medicine
DX: N12 Tubulo-interstitial nephritis, not specified as acute or chronic (principal); R78.81 Bacteremia; B96.20 Unspecified Escherichia coli [E. coli] as the cause of diseases classified elsewhere
CPT/HCPCS: 36415; 74176; 80048; 81001; 83605; 84145; 85025; 87040; 87086; 99285; J0696; J2405

== ENCOUNTER 2023-05-09 16:09 | Inpatient (IN) | payer OTHER, MEDICAID, SELFPAY ==
[2023-05-09] VITALS (8 sets, daily range): BP systolic 96–119; BP diastolic 53–76; PULSE 93–120; RESP 18; TEMP 36.8–38; O2SAT 95–100; BMI 28.7; BMI 30.8
--- NOTE | 2023-05-09 16:29 | ECG_ITS ---
APPROVED REPORT Exam: Resting ECG HR:112 bpm ECG Measurements Heart Rate 112 AXES VA 156 P 64 QRSd 86 QRS 78 QT 300 T 44 QTc 366 Conclusion SINUS TACHYCARDIA NONSPECIFIC ST & T-WAVE ABNORMALITY ABNORMAL RHYTHM ECG UNCONFIRMED REPORT Electronically signed by : Jaycob Deshpande MD 05/10/2023 12:34:21
--- NOTE | 2023-05-09 16:44 | CT_ITS ---
PROCEDURE INFORMATION: Exam: CTA Chest With Contrast Exam date and time: 05/09/2023 5:58 PM Age: 47 years old Clinical indication: Shortness of breath and tachypnea; Additional info: KIMBERLY Pozo TECHNIQUE: Imaging protocol: Computed tomographic angiography of the chest with contrast. Exam focused on the arteries. 3D rendering (Not supervised by radiologist): MIP and/or 3D reconstructed images were created by the technologist. Radiation optimization: All CT scans at this facility use at least one of these dose optimization techniques: automated exposure control; mA and/or kV adjustment per patient size (includes targeted exams where dose is matched to clinical indication); or iterative reconstruction. Contrast material: ISOVUE; Contrast volume: 75 ml; Contrast route: INTRAVENOUS (IV); REPORTING DATA: Count of CT and Cardiac NM exams in prior 12 months: This patient has received [address] and 0 known cardiac nuclear medicine studies in the 12 months prior to the current study. COMPARISON: CT ABDOMEN PELVIS WO CON 04/16/2023 2:46 PM FINDINGS: Pulmonary arteries: Normal. No pulmonary emboli. Aorta: Unremarkable. No aortic aneurysm. No aortic dissection. Lungs: Unremarkable. No consolidation. No masses. Pleural spaces: Unremarkable. No pneumothorax. No pleural effusion. Heart: Unremarkable. No cardiomegaly. No pericardial effusion. Lymph nodes: Unremarkable. No enlarged lymph nodes. Bones/joints: Unremarkable. No acute fracture. Soft tissues: Unremarkable. IMPRESSION: No acute findings.
--- NOTE | 2023-05-09 16:44 | CT_ITS ---
PROCEDURE INFORMATION: Exam: CT Abdomen And Pelvis With Contrast Exam date and time: 05/09/2023 5:58 PM Age: 47 years old Clinical indication: Abdominal pain; Flank; Right; Additional info: Sirs +, flank pain, recent urosepsis TECHNIQUE: Imaging protocol: Computed tomography of the abdomen and pelvis with contrast. Radiation optimization: All CT scans at this facility use at least one of these dose optimization techniques: automated exposure control; mA and/or kV adjustment per patient size (includes targeted exams where dose is matched to clinical indication); or iterative reconstruction. Contrast material: ISOVUE; Contrast volume: 75 ml; Contrast route: IV; REPORTING DATA: Count of CT and Cardiac NM exams in prior 12 months: This patient has received [address] and 0 known cardiac nuclear medicine studies in the 12 months prior to the current study. COMPARISON: CT ABDOMEN PELVIS WO CON 04/16/2023 2:46 PM FINDINGS: Liver: Normal. No mass. Gallbladder and bile ducts: Normal. No calcified stones. No ductal dilation. Pancreas: Normal. No ductal dilation. Spleen: Normal. No splenomegaly. Adrenal glands: Normal. No mass. Kidneys and ureters: Striated enhancement pattern of both kidneys concerning for pyelonephritis, most pronounced in the upper pole of the left kidney. No hydronephrosis or evidence of urolithiasis. Stomach and bowel: Unremarkable. No obstruction. No mucosal thickening. Appendix: No evidence of appendicitis. Intraperitoneal space: Unremarkable. No free air. No significant fluid collection. Vasculature: Unremarkable. No abdominal aortic aneurysm. Lymph nodes: Unremarkable. No enlarged lymph nodes. Urinary bladder: Unremarkable as visualized. Reproductive: Unremarkable as visualized. Bones/joints: Unremarkable. No acute fracture. Soft tissues: Unremarkable. IMPRESSION: Findings concerning for bilateral pyelonephritis. No evidence of urinary tract obstruction.
[2023-05-09 16:57] LABS: Basophils % 0.1 % (0.1-2.0); Chloride 104 mmol/L (98-107); Eosinophils % 0.4 % (0.1-12.0); Hematocrit 38.6 % (37.0-47.0); Lymphocytes # 0.6 K/mm3 (0.7-4.5); Lymphocytes % 5.7 % (10-50); Mean Corpuscular HGB Conc 33.7 g/dL (31.8-35.4); Mean Corpuscular Hemoglobin 30.6 pg (27.0-31.2); Mean Corpuscular Volume 90.7 fl (81-99); Mean Platelet Volume 9.3 fl (7.4-10.4); Monocytes # 0.5 K/mm3 (0.1-1.0); Monocytes % 5.1 % (1.7-9.3); Neutrophils # 9.4 K/mm3 (1.8-7.8); Neutrophils % 88.6 % (37.0-80.0); Platelet Count 221 K/mm3 (142-424); Red Blood Count 4.25 M/mm3 (4.20-5.40); Red Cell Distribution Width 13.5 % (11.5-17.5); White Blood Count 10.6 K/mm3 (4.8-10.8)
[2023-05-09 16:58] LABS: Potassium 3.1 mmoL/L (3.5-5.1); Sodium 137 mmol/L (136-145)
--- NOTE | 2023-05-09 16:58 | HMH.EDGENADL ---
Discharge Plan Disposition Patient Disposition: Admitted Clinical Impressions Clinical Impression: Pyelonephritis, Hypokalemia Sepsis Qualifiers: Sepsis type: sepsis due to unspecified organism Sepsis acute organ dysfunction status: without acute organ dysfunction Qualified Code(s): A41.9 - Sepsis, unspecified organism Discharge ED Provider: Destini Das General Adult HPI General Chief complaint: Fever Stated complaint: SOA Time Seen by Provider: 05/09/23 16:26 Mode of Arrival: Ambulatory Source of Information: Patient Limitations: No Limitations Description of Symptoms (Recalled from ER Triage Doc. by RN): Pt reports having body aches x4 days, lower back pain and R lower abd pain x3 days, reports lastnight began running a fever and having chills. Pt reports began feeling SOA this morning. Pt reports recent treatment for UTI, had positive blood cultures at that time, was admitted for IV antibiotics. History of Present Illness HPI narrative: This patient is a 47-year-old female with a history of bacteremia secondary to pyelonephritis with recent admission to the hospital at the beginning of April presented to the emergency department for evaluation with concern for fevers, flank pain, and body aches that been going on for the last 4 days. On medical record review, patient was admitted on 04/16/2023 for bacteremia on medical record review. She grew gram-negative rods in her blood culture and was treated with 3 days of IV Rocephin. She was discharged on 7 days of Augmentin, which she states that she completed. She followed up with her primary care doctor and had urine rechecked, which was negative. She states that she had been doing well up until a few days ago, when she started having the body aches, weakness, and fatigue again. Today, she is feeling much worse with fevers, for which she has been taking ibuprofen. She states that this feels similar to when she was here with infection in the past. On review of systems, she also complains of some shortness of breath. Related Data Home Medications Medication Instructions Recorded Confirmed ondansetron 4 mg disintegrating 4 mg PO Q6HP PRN nausea and 04/16/23 04/16/23 tablet vomiting Previous Rx's Medication Instructions Recorded amoxicillin 500 mg-potassium 1 tab PO TID #21 tabs 04/18/23 clavulanate 125 mg tablet (Augmentin) Allergies Allergy/AdvReac Type Severity Reaction Status Date / Time sulfamethoxazole Allergy Verified 12/23/22 11:13 [From Bactrim] trimethoprim [From Bactrim] Allergy Verified 12/23/22 11:13 [facility] Disclaimer: The information contained in this section may have been updated after the patient was seen, as this information can be updated by other users. Family History (Updated 05/09/23 @ 23:09 by Lara Kruger RN) Father Family history of cancer Social History Smoking Status: Never smoker alcohol intake: never current occupational status: employed Travel in the last 8 weeks: None ROS Obtained: Yes All systems reviewed & no additional complaints except as documented Physical Exam General General appearance: alert and in no apparent distress Head Head exam: atraumatic and normocephalic Eye Eye exam: Present normal appearance, PERRL and EOMI ENT ENT exam: Present normal exam, normal oropharynx, mucous membranes moist and normal external ear exam Neck Neck exam: Present normal inspection, full ROM and trachea midline; Absent tenderness Chest Chest inspection: Present normal inspection and symmetric chest wall rise; Absent tenderness Respiratory Respiratory exam: Present normal lung sounds bilaterally; Absent respiratory distress, wheezes, stridor or accessory muscle use Cardiovascular Cardiovascular exam: Present normal rhythm and tachycardia Abdominal Exam Abdominal exam: Present soft and tenderness (suprapubic); Absent distention, guarding, rebou
[2023-05-09 17:00] LABS: Alanine Aminotransferase 24 U/L (12-78); Alkaline Phosphatase 81 U/L (38-126); Aspartate Amino Transferase 28 U/L (14-36); Bilirubin,Total 0.5 mg/dl (0.2-1.3); Blood Urea Nitrogen 14 mg/dl (7-17); Creatinine Clearance Estimated 89 mL/min (50-200); Estimated Glomerular Filt Rate 68 ml/min (>60); GFR (African American) 82 ML/MIN (>60)
[2023-05-09 17:01] LABS: Albumin Level 3.7 g/dl (3.5-5.0); Albumin/Globulin Ratio 1.2 (1.1-1.8); Anion Gap 14.1 mEq/L (5-15); Calcium 8.8 mg/dl (8.4-10.2); Carbon Dioxide 22 mmol/L (22.0-30.0); Globulin 3.1 g/dL (1.3-3.2); Glucose 125 mg/dl (74-100); Total Protein,Serum 6.8 g/dl (6.3-8.2)
[2023-05-09 17:02] LABS: Lactic Acid 2.4 mmol/L (0.7-2.1)
[2023-05-09 17:04] LABS: MANUAL DIFFERENTIAL MANUAL DIFFERENTIAL (MANUAL DIFF)
--- NOTE | 2023-05-09 17:17 | PC.NURSE ---
covid swab sent to lab
[2023-05-09 17:20] LABS: Coronavirus 19, PCR Not Detected (NotDetected); Influenza A, PCR Not Detected (NotDetected); Influenza B, PCR Not Detected (NotDetected)
[2023-05-09 17:22] LABS: Microscopic, Urine URINE MICROSCOPIC (MICROSCOPIC)
[2023-05-09 17:39] LABS: Appearance,Urine CLEAR (Clear); Bilirubin,Urine Negative (Negative); Blood, Urine 2+ (Negative); Color,Urine YELLOW (Yellow); Glucose,Urine (UA) Negative (Negative); Ketones,Urine Negative (Negative); Leukocyte Esterase,Urine 2+ (Negative); Nitrate,Urine Negative (Negative); Protein,Urine 1+ (Negative); Urobilinogen,Urine 0.2 EU/dl (0.2)
--- NOTE | 2023-05-09 18:45 | PC.NURSE ---
pt resting in bed nothing needed, call light at bs
[2023-05-09 18:51] LABS: Squamous Epithelial Cell,Urine Occasional #/hpf (0-5); WBC,Urine TNTC #/hpf (0-3)
--- NOTE | 2023-05-09 20:01 | PC.NURSE ---
Called admissions to give room #
--- NOTE | 2023-05-09 20:28 | PC.NURSE ---
Attempted to call report to accepting nurse at this time.
[2023-05-09 20:33] LABS: Lymphocytes % 5 % (10-50); Monocytes % 2 % (2-9); Neutrophils % 93 % (42-76); Platelet Estimate Normal; RBC Morphology Normal; Total Cells Counted 100
[2023-05-09 20:52] LABS: Reflex Lactic Add Lactic Reflex
--- NOTE | 2023-05-09 20:54 | PC.NURSE ---
Rounded on pt. No needs voiced.
--- NOTE | 2023-05-09 20:58 | PC.NURSE ---
Report called to JACQUIE Dumas at this time.
--- NOTE | 2023-05-09 21:00 | EXP.HP ---
History of Present Illness *Admission Date: 05/09/23 *Reason for visit:: UTI/sepsis *History of present illness: This is a 47-year-old female with a history of bacteremia secondary to pyelonephritis with recent admission to the hospital at the beginning of April presented to the emergency department for evaluation with concern for fevers, flank pain, and body aches that been going on for the last 4 days. On medical record review, patient was admitted on 04/16/2023 for bacteremia. She was treated with 3 days of IV Rocephin and was discharged on Augmentin and PCP to follow up. She stated a few days ago, she started having the body aches, weakness, and fatigue again. Today, she is feeling much worse with fevers, for which she has been taking ibuprofen, with no resolution of symptoms patient decided to come to the ER for evaluation. Admitted for treatment. [facility] Disclaimer: The information contained in this section may have been updated after the patient was seen, as this information can be updated by other users. Family History (Updated 05/09/23 @ 23:09 by Lara Kruger RN) Family history of cancer Father Social History Smoking Status: Never smoker alcohol intake: never current occupational status: employed Travel in the last 8 weeks: None Review of Systems Review of Systems Review of systems:: pertinent systems reviewed and negative unless documented below Meds Home Medications and Allergies Home Medications Medication Instructions Recorded Confirmed Type No Known Home Medications 05/10/23 05/10/23 History New Prescriptions to Start Prescriptions: Allergies Allergy/AdvReac Type Severity Reaction Status Date / Time sulfamethoxazole Allergy Verified 12/23/22 11:13 [From Bactrim] trimethoprim [From Bactrim] Allergy Verified 12/23/22 11:13 Exam Data for Last 24 hours Vital signs and Labs for Last 24 Hours: Temp Pulse Resp BP Pulse Ox O2 Del Method 99.5 F 93 H 18 108/71 L 96 Room Air 05/09/23 16:11 05/09/23 20:31 05/09/23 16:11 05/09/23 20:31 05/09/23 20:31 05/09/23 20:31 Laboratory Results - last 24 hr 05/09/23 16:29: WBC 10.6, RBC 4.25, Hgb 13.0, Hct 38.6, MCV 90.7, MCH 30.6, MCHC 33.7, RDW 13.5, Plt Count 221, MPV 9.3, Neut % (Auto) 88.6 H, Lymph % (Auto) 5.7 L, [place] % (Auto) 5.1, Eos % (Auto) 0.4, Baso % (Auto) 0.1, Neut # (Auto) 9.4 H, Lymph # (Auto) 0.6 L, [place] # (Auto) 0.5, Eos # (Auto) 0.0, Baso # (Auto) 0.0, Total Counted 100, Neutrophils % (Manual) 93 H, Lymphocytes % (Manual) 5 L, Monocytes % (Manual) 2, Platelet Estimate Normal, RBC Morphology Normal, Sodium 137, Potassium 3.1 L, Chloride 104, Carbon Dioxide 22, Anion Gap 14.1, BUN 14, Creatinine 0.90, Estimated Creat Clear 89, Estimated GFR 68, Est GFR ( Amer) 82, Glucose 125 H, Lactate 2.4 H, Calcium 8.8, Total Bilirubin 0.5, AST 28, ALT 24, Alkaline Phosphatase 81, Total Protein 6.8, Albumin 3.7, Globulin 3.1, Albumin/Globulin Ratio 1.2 05/09/23 17:08: Urine Color Yellow, Urine Appearance Clear, Urine pH 6.0, Ur Specific [place] 1.020, Urine Protein 1+, Urine Glucose (UA) Negative, Urine Ketones Negative, Urine Blood 2+, Urine Nitrate Negative, Urine Bilirubin Negative, Urine Urobilinogen 0.2, Ur Leukocyte Esterase 2+ A, Urine RBC 5-10, Urine WBC Tntc, Ur Squamous Epith Cells Occasional, Urine Bacteria None 05/09/23 17:14: SARS-CoV-2 (PCR) Not detected, Influenza A Untype (PCR) Not detected, Influenza Type B (PCR) Not detected I & O for Last 24 hours: Intake & Output 05/06/23 05/07/23 05/08/23 05/09/23 23:59 23:59 23:59 23:59 Weight 71.214 kg Constitutional Constitutional: mild distress *Routine HEENT Exam Head: Present normocephalic and atraumatic Eye: Present EOMI, PERRL and normal accommodation ENT: Present mucous membranes moist *Routine Neck Exam Neck: Present supple, full ROM and trachea midline *Routine Respiratory Exam Respi
--- NOTE | 2023-05-09 21:15 | PC.NURSE ---
PT ARRIVED TO FLOOR AT THIS TIME
[2023-05-10] VITALS (7 sets, daily range): BP systolic 81–130; BP diastolic 49–78; PULSE 79–120; RESP 16–18; TEMP 36.7–38.3; O2SAT 96–100; BMI 32.0
[2023-05-10 00:49] LABS: Reflex Lactic (2 hrs) Add Lactic Reflex
[2023-05-10 00:58] LABS: Lactic Acid Follow up (RFLX 2) 2.1 mmol/L (0.7-2.1)
[2023-05-10 07:19] LABS: Basophils % 0.1 % (0.1-2.0); Hematocrit 35.1 % (37.0-47.0); Hemoglobin 11.9 g/dL (12.2-16.2); Lymphocytes # 1.1 K/mm3 (0.7-4.5); Lymphocytes % 7.3 % (10-50); Mean Corpuscular HGB Conc 33.8 g/dL (31.8-35.4); Mean Corpuscular Hemoglobin 31.2 pg (27.0-31.2); Mean Corpuscular Volume 92.3 fl (81-99); Mean Platelet Volume 9.4 fl (7.4-10.4); Monocytes % 6.6 % (1.7-9.3); Neutrophils # 13.1 K/mm3 (1.8-7.8); Neutrophils % 85.9 % (37.0-80.0); Platelet Count 211 K/mm3 (142-424); Red Cell Distribution Width 13.6 % (11.5-17.5); White Blood Count 15.2 K/mm3 (4.8-10.8)
[2023-05-10 07:22] LABS: MANUAL DIFFERENTIAL MANUAL DIFFERENTIAL (MANUAL DIFF)
[2023-05-10 07:24] LABS: Chloride 105 mmol/L (98-107); Potassium 3.7 mmoL/L (3.5-5.1); Sodium 135 mmol/L (136-145)
[2023-05-10 07:26] LABS: Alanine Aminotransferase 16 U/L (12-78); Aspartate Amino Transferase 19 U/L (14-36); Blood Urea Nitrogen 9 mg/dl (7-17); Creatinine Clearance Estimated 111 mL/min (50-200); Estimated Glomerular Filt Rate 78 ml/min (>60); GFR (African American) 94 ML/MIN (>60)
[2023-05-10 07:27] LABS: Albumin/Globulin Ratio 1.1 (1.1-1.8); Alkaline Phosphatase 69 U/L (38-126); Anion Gap 12.7 mEq/L (5-15); Bilirubin,Total 0.7 mg/dl (0.2-1.3); Carbon Dioxide 21 mmol/L (22.0-30.0); Chol/HDL Ratio 3.3 (1-3.5); Cholesterol 140 mg/dl (140-200); Globulin 2.7 g/dL (1.3-3.2); Glucose 145 mg/dl (74-100); HDL Cholesterol 42 mg/dl (40-60); Magnesium 1.6 mg/dl (1.6-2.3); Total Protein,Serum 5.7 g/dl (6.3-8.2); Triglycerides 114 mg/dl (30-150); VLDL Cholesterol 23 mg/dL (0-40)
[2023-05-10 07:38] LABS: Direct LDL Cholesterol 60.41 mg/dL (100-129)
[2023-05-10 07:58] LABS: Lymphocytes % 10 % (10-50); Monocytes % 8 % (2-9); Neutrophils % 82 % (42-76); Platelet Estimate Normal; RBC Morphology Normal; Total Cells Counted 100
--- NOTE | 2023-05-10 08:17 | EXP.PHA.CONS ---
Pharmacy Consult Date: 05/10/23 Time: 08:17 Referring provider: DR SARAH Reason for Consult:: VANCOMYCIN DOSING CONSULT Allergies Allergy/AdvReac Type Severity Reaction Status Date / Time sulfamethoxazole Allergy Verified 12/23/22 11:13 [From Bactrim] trimethoprim [From Bactrim] Allergy Verified 12/23/22 11:13 Home Medications Medication Instructions Recorded Confirmed Type ondansetron 4 mg disintegrating 4 mg PO Q6HP PRN nausea and 04/16/23 04/16/23 History tablet vomiting amoxicillin 500 mg-potassium 1 tab PO TID #21 tabs 04/18/23 Rx clavulanate 125 mg tablet (Augmentin) New Prescriptions to Start Prescriptions: Height: 1.57 m Weight: 79.01 kg Laboratory Results:: Laboratory Results - last 24 hr 05/09/23 16:29: WBC 10.6, RBC 4.25, Hgb 13.0, Hct 38.6, MCV 90.7, MCH 30.6, MCHC 33.7, RDW 13.5, Plt Count 221, MPV 9.3, Neut % (Auto) 88.6 H, Lymph % (Auto) 5.7 L, [place] % (Auto) 5.1, Eos % (Auto) 0.4, Baso % (Auto) 0.1, Neut # (Auto) 9.4 H, Lymph # (Auto) 0.6 L, [place] # (Auto) 0.5, Eos # (Auto) 0.0, Baso # (Auto) 0.0, Total Counted 100, Neutrophils % (Manual) 93 H, Lymphocytes % (Manual) 5 L, Monocytes % (Manual) 2, Platelet Estimate Normal, RBC Morphology Normal, Sodium 137, Potassium 3.1 L, Chloride 104, Carbon Dioxide 22, Anion Gap 14.1, BUN 14, Creatinine 0.90, Estimated Creat Clear 89, Estimated GFR 68, Est GFR ( Amer) 82, Glucose 125 H, Lactate 2.4 H, Calcium 8.8, Total Bilirubin 0.5, AST 28, ALT 24, Alkaline Phosphatase 81, Total Protein 6.8, Albumin 3.7, Globulin 3.1, Albumin/Globulin Ratio 1.2 05/09/23 17:08: Urine Color Yellow, Urine Appearance Clear, Urine pH 6.0, Ur Specific [place] 1.020, Urine Protein 1+, Urine Glucose (UA) Negative, Urine Ketones Negative, Urine Blood 2+, Urine Nitrate Negative, Urine Bilirubin Negative, Urine Urobilinogen 0.2, Ur Leukocyte Esterase 2+ A, Urine RBC 5-10, Urine WBC Tntc, Ur Squamous Epith Cells Occasional, Urine Bacteria None 05/09/23 17:14: SARS-CoV-2 (PCR) Not detected, Influenza A Untype (PCR) Not detected, Influenza Type B (PCR) Not detected 05/09/23 22:40: Lactate 3.0 H 05/10/23 00:40: Lactate 2.1 05/10/23 06:33: WBC 15.2 H D, RBC 3.80 L, Hgb 11.9 L, Hct 35.1 L, MCV 92.3, MCH 31.2, MCHC 33.8, RDW 13.6, Plt Count 211, MPV 9.4, Neut % (Auto) 85.9 H, Lymph % (Auto) 7.3 L, [place] % (Auto) 6.6, Eos % (Auto) 0.0 L, Baso % (Auto) 0.1, Neut # (Auto) 13.1 H, Lymph # (Auto) 1.1, [place] # (Auto) 1.0, Eos # (Auto) 0.0, Baso # (Auto) 0.0, Total Counted 100, Neutrophils % (Manual) 82 H, Lymphocytes % (Manual) 10, Monocytes % (Manual) 8, Platelet Estimate Normal, RBC Morphology Normal, Sodium 135 L, Potassium 3.7, Chloride 105, Carbon Dioxide 21 L, Anion Gap 12.7, BUN 9 D, Creatinine 0.80, Estimated Creat Clear 111, Estimated GFR 78, Est GFR ( Amer) 94, Glucose 145 H, Calcium 8.0 L, Magnesium 1.6, Total Bilirubin 0.7, AST 19 D, ALT 16 D, Alkaline Phosphatase 69, Total Protein 5.7 L, Albumin 3.0 L D, Globulin 2.7, Albumin/Globulin Ratio 1.1, Triglycerides 114, Cholesterol 140, LDL Cholesterol Direct 60.41 L, VLDL Cholesterol 23, HDL Cholesterol 42, Cholesterol/HDL Ratio 3.3 Assessment and Plan Assessment and plan all Dx Assessment and Plan for all problems:: Pharmacokinetic dosing service Objective: Age: 47 yo Serum creatinine: 0.8 mg/dL Height: 61.8 Inches Weight (kg): 79.01 Diagnosis: UTI/SEPSIS Assessment: IBW (kg): 49.64 Dosing wt(kg): 79.01 Estimated Creatinine clearance (ml/min): 69.6 CRCL method: Cockcroft and Gault using ibw(default). Drug selected: Vancomycin Loading dose (mg): Vd (liters): 59.3 (factor used: 0.75 L/kg) Jose (hr-1): 0.062 Half life (hrs): 11.18 CLvanco=?? 3.677 L/hr Recommended dose: 1500 mg Interval: 18 hrs Infusion time (hrs): 2.0 Predicted peak (mcg/mL): 35.4 Predicted trough (mcg/mL):
--- NOTE | 2023-05-10 08:20 | HMH.PHAINT1 ---
Pharmacy Intervention Comments: MEDICATION RECONCILIATION COMPLETE USING EXTERNAL PHARMACY FILL HISTORY AND RECENT HOSPITAL DISCHARGE NOTE (04/16/23)
--- NOTE | 2023-05-10 12:35 | EXP.ACUTE.PN ---
Subjective *Date: 05/10/23 *Time: 12:38 Interval history: Patient feeling little better this morning. Ambulating independently. Denies any nausea or vomiting. Has minimal appetite however. Stable on room air. Afebrile this morning but complaining of headache. Medical Exam Vital signs and Labs for Last 24 Hours: Vital Signs Temp Pulse Pulse Resp BP BP Pulse Ox 05/10/23 10:59 98.1 F 79 16 130/62 100 05/10/23 09:00 05/10/23 08:00 05/10/23 07:55 100/78 L 05/10/23 07:21 98.3 F 101 H 16 88/49 L 96 05/10/23 04:00 99.3 F 101 H 18 81/52 L 100 05/10/23 06:42 05/10/23 05:00 05/10/23 03:00 05/10/23 00:00 101.0 F H 120 H 18 115/70 98 05/10/23 01:00 05/09/23 23:00 05/09/23 21:00 05/09/23 21:00 100.4 F H 102 H 18 119/76 100 05/09/23 21:04 98.2 F 93 H 18 109/71 L 05/09/23 20:31 93 H 108/71 L 96 05/09/23 20:00 99 H 109/53 L 95 05/09/23 19:00 95 H 102/54 L 99 05/09/23 18:36 115 H 96/64 L 98 05/09/23 17:00 107 H 118/70 98 05/09/23 16:11 99.5 F 120 H 18 113/72 99 O2 Del Method 05/10/23 10:59 Room Air 05/10/23 09:00 Room Air 05/10/23 08:00 Room Air 05/10/23 07:55 05/10/23 07:21 Room Air 05/10/23 04:00 Room Air 05/10/23 06:42 Room Air 05/10/23 05:00 Room Air 05/10/23 03:00 Room Air 05/10/23 00:00 Room Air 05/10/23 01:00 Room Air 05/09/23 23:00 Room Air 05/09/23 21:00 Room Air 05/09/23 21:00 Room Air 05/09/23 21:04 Room Air 05/09/23 20:31 Room Air 05/09/23 20:00 Room Air 05/09/23 19:00 Room Air 05/09/23 18:36 Room Air 05/09/23 17:00 Room Air 05/09/23 16:11 Room Air Intake and Output 05/09/23 05/10/23 05/10/23 23:59 07:59 15:59 Intake Total 460 / 580 120 / 580 Output Total 0 / 0 0 / 0 0 / 0 Balance 0 / 340 460 / 580 120 / 580 Intake: Intake, Oral Amount 360 / 480 120 / 480 Intake, Total IV Amount 100 / 100 0.9 % Sodium Chloride 1000ML 1, 100 / 100 000 ml @ 150 mls/hr IV .[id number] [facility] Rx#:[id number] Output: Output, Urine Amount 0 / 0 0 / 0 0 / 0 Other: Number of Unmeasured Voids 1 1 1 Weight 75.977 kg 79.01 kg 79.01 kg Patient Weight 05/10/23 23:59 Weight 79.01 kg Laboratory Results - last 24 hr 05/09/23 16:29: WBC 10.6, RBC 4.25, Hgb 13.0, Hct 38.6, MCV 90.7, MCH 30.6, MCHC 33.7, RDW 13.5, Plt Count 221, MPV 9.3, Neut % (Auto) 88.6 H, Lymph % (Auto) 5.7 L, [place] % (Auto) 5.1, Eos % (Auto) 0.4, Baso % (Auto) 0.1, Neut # (Auto) 9.4 H, Lymph # (Auto) 0.[address] L, [place] # (Auto) 0.5, Eos # (Auto) 0.0, Baso # (Auto) 0.0, Total Counted 100, Neutrophils % (Manual) 93 H, Lymphocytes % (Manual) 5 L, Monocytes % (Manual) 2, Platelet Estimate Normal, RBC Morphology Normal, Sodium 137, Potassium 3.1 L, Chloride 104, Carbon Dioxide 22, Anion Gap 14.1, BUN 14, Creatinine 0.90, Estimated Creat Clear 89, Estimated GFR 68, Est GFR ( Amer) 82, Glucose 125 H, Lactate 2.4 H, Calcium 8.8, Total Bilirubin 0.5, AST 28, ALT 24, Alkaline Phosphatase 81, Total Protein 6.8, Albumin 3.7, Globulin 3.1, Albumin/Globulin Ratio 1.2 05/09/23 17:08: Urine Color Yellow, Urine Appearance Clear, Urine pH 6.0, Ur Specific Deane 1.020, Urine Protein 1+, Urine Glucose (UA) Negative, Urine Ketones Negative, Urine Blood 2+, Urine Nitrate Negative, Urine Bilirubin Negative, Urine Urobilinogen 0.2, Ur Leukocyte Esterase 2+ A, Urine RBC 5-10, Urine WBC Tntc, Ur Squamous Epith Cells Occasional, Urine Bacteria None 05/09/23 17:14: SARS-CoV-2 (PCR) Not detected, Influenza A Untype (PCR) Not detected, Influenza Type B (PCR) Not detected 05/09/23 22:40: Lactate 3.0 H 05/10/23 00:40: Lactate 2.1 05/10/23 06:33: WBC 15.2 H D, RBC 3.80 L, Hgb 11.9 L, Hct 35.1 L, MCV 92.3, MCH 31.2, MCHC 33.8, RDW 13.6, Plt Count 211, MPV 9.4, Neut % (Auto) 85.9 H, Lymph % (Auto) 7.[address] L, [place] % (Auto) 6.6, Eos % (Auto) 0.0 L, Baso % (Auto) 0.1, Neut # (Auto) 13.1 H, Lymph #
[2023-05-11] VITALS: BP 110/62; PULSE 77; RESP 18; TEMP 37.1; O2SAT 99
[2023-05-11 04:00] VITALS: BP 112/66; PULSE 77; RESP 18; TEMP 37; O2SAT 99; BMI 32.1
--- NOTE | 2023-05-11 06:27 | PC.NURSE ---
pt a/o, ambulates to and from bathroom independently, @2300 pt reports face tingling and SOA, pt also reports feeling of stress related to work and kids, Vitals were BP 108/62, HR 78, T 98.4, O2 100% RA, RR 20, [employer] was notified, clonazepam was ordered and given for anxiety, pt. states feels much better , visitor is at bedside, call button is in reach.
[2023-05-11 07:01] LABS: MANUAL DIFFERENTIAL MANUAL DIFFERENTIAL (MANUAL DIFF)
[2023-05-11 07:06] LABS: Basophils % 0.1 % (0.1-2.0); Eosinophils % 0.3 % (0.1-12.0); Hematocrit 33.9 % (37.0-47.0); Hemoglobin 11.5 g/dL (12.2-16.2); Lymphocytes # 1.7 K/mm3 (0.7-4.5); Lymphocytes % 16.9 % (10-50); Mean Corpuscular HGB Conc 33.8 g/dL (31.8-35.4); Mean Corpuscular Hemoglobin 31.2 pg (27.0-31.2); Mean Corpuscular Volume 92.4 fl (81-99); Mean Platelet Volume 9.1 fl (7.4-10.4); Monocytes # 0.7 K/mm3 (0.1-1.0); Monocytes % 7.1 % (1.7-9.3); Neutrophils # 7.8 K/mm3 (1.8-7.8); Neutrophils % 75.7 % (37.0-80.0); Platelet Count 199 K/mm3 (142-424); Red Blood Count 3.67 M/mm3 (4.20-5.40); Red Cell Distribution Width 13.6 % (11.5-17.5); White Blood Count 10.3 K/mm3 (4.8-10.8)
[2023-05-11 07:13] LABS: Chloride 108 mmol/L (98-107); Sodium 138 mmol/L (136-145)
[2023-05-11 07:14] LABS: Potassium 3.6 mmoL/L (3.5-5.1)
[2023-05-11 07:16] LABS: Blood Urea Nitrogen 5 mg/dl (7-17); Creatinine Clearance Estimated 111 mL/min (50-200); Estimated Glomerular Filt Rate 78 ml/min (>60); GFR (African American) 94 ML/MIN (>60)
[2023-05-11 07:17] LABS: Anion Gap 8.6 mEq/L (5-15); Calcium 8.1 mg/dl (8.4-10.2); Carbon Dioxide 25 mmol/L (22.0-30.0); Glucose 105 mg/dl (74-100)
[2023-05-11 08:00] VITALS: BP 101/58; PULSE 84; RESP 17; TEMP 36.5; O2SAT 100
--- NOTE | 2023-05-11 08:42 | EXP.DC.SUM ---
General Admission date:: 05/09/23 Discharge date: 05/11/23 HPI HPI HPI: This is a 47-year-old female with a history of bacteremia secondary to pyelonephritis with recent admission to the hospital at the beginning of April presented to the emergency department for evaluation with concern for fevers, flank pain, and body aches that been going on for the last 4 days. On medical record review, patient was admitted on 04/16/2023 for bacteremia. She was treated with 3 days of IV Rocephin and was discharged on Augmentin and PCP to follow up. She stated a few days ago, she started having the body aches, weakness, and fatigue again. Today, she is feeling much worse with fevers, for which she has been taking ibuprofen, with no resolution of symptoms patient decided to come to the ER for evaluation. Admitted for treatment. Hospital Course Hospital Course Hospital Course: This patient is a 47-year-old female with a history of bacteremia secondary to pyelonephritis with recent admission to the hospital at the beginning of April presented to the emergency department for evaluation with concern for fevers, flank pain, and body aches that been going on for the last 4 days. Patient also complaining of flank pain, upon arrival to ER, CT of abdomen/pelvis was done, consistent with bilateral pyelonephritis. Lab work was unremarkable. Hypokalemia was present. It was replaced. Initially started on vancomycin and Zosyn. Transitioned to Levaquin for ease of conversion from IV to oral. Previous cultures positive for E. coli is pansensitive. Significant symptom improvement today. Stable for DC home to complete antibiotic regimen Problems addressed as follows: - Sepsis without organ dysfunction - bilateral pyelonephritis in the course of recurrent UTI: Sepsis with leukocytosis, tachycardia, source of infection. CT imaging positive for bilateral pyelonephritis with perinephric stranding. Initiated on Zosyn and vancomycin. Transition to levofloxacin 750 mg daily IV. On day of discharge, transitioned to levo for this and 750 mg daily orally. Will complete 10 days of antibiotics. Urine culture still pending at time of discharge. Blood cultures negative. Tolerating p.o. intake, afebrile for over 24 hours. Improved leukocytosis with normalization of white cell count on day of discharge. -Hypokalemia: improved on morning labs 3.6 Stable for discharge home. Referred to urology at [place] for close follow-up given recurrence of UTIs. Exam Data for Last 24 hours Vital signs and Labs for Last 24 Hours: Temp Pulse Resp BP Pulse Ox O2 Del Method 97.7 F 84 17 101/58 L 100 Room Air 05/11/23 08:00 05/11/23 08:00 05/11/23 08:00 05/11/23 08:00 05/11/23 08:00 05/11/23 08:00 Laboratory Results - last 24 hr 05/11/23 06:39: WBC 10.3 D, RBC 3.67 L, Hgb 11.5 L, Hct 33.9 L, MCV 92.4, MCH 31.2, MCHC 33.8, RDW 13.6, Plt Count 199, MPV 9.1, Neut % (Auto) 75.7, Lymph % (Auto) 16.9, [place] % (Auto) 7.1, Eos % (Auto) 0.3, Baso % (Auto) 0.1, Neut # (Auto) 7.8, Lymph # (Auto) 1.7, Moca # (Auto) 0.7, Eos # (Auto) 0.0, Baso # (Auto) 0.0, Sodium 138, Potassium 3.6, Chloride 108 H, Carbon Dioxide 25, Anion Gap 8.6, BUN 5 L D, Creatinine 0.80, Estimated Creat Clear 111, Estimated GFR 78, Est GFR ( Amer) 94, Glucose 105 H, Calcium 8.1 L I & O for Last 24 hours: Intake & Output 05/08/23 05/09/23 05/10/23 05/11/23 23:59 23:59 23:59 23:59 Intake Total 3068 / 3218 620 / 620 Output Total 0 / 0 0 / 0 0 / 0 Balance 0 / 340 3068 / 3218 620 / 620 Weight 75.977 kg 79.01 kg 79.124 kg Microbiology Reports for the Last 24 Hours: Microbiology 05/09/23 17:08 Urine,Clean Catch Urine Culture - Preliminary NO GROWTH AFTER 24 HOURS Constitutional Constitutional: no acute distress *Routine HEENT Exam Head: Present normocephalic Eye: Present EOMI and PERRL ENT: Present mucous membranes moist *Routine Neck Exam Neck: P
[2023-05-11 10:54] LABS: Lymphocytes % 13 % (10-50); Monocytes % 12 % (2-9); Neutrophils % 75 % (42-76); Platelet Estimate Normal; RBC Morphology Normal; Total Cells Counted 100
--- NOTE | 2023-05-13 15:04 | CARE MANAGER ---
Spoke with patient for post-discharge phone interview, no issues noted.
== END 2023-05-11 12:02 | disposition home or self-care (01) | DRG 872 ==
LOC: ER 16:27 → 2ND 20:07
PROVIDERS: Nurse Practitioner Family; Admitting Provider Internal Medicine Adolescent Medicine; Emergency Provider Emergency Medicine; PCP Family Medicine; Visit Provider Internal Medicine Adolescent Medicine
DX: A41.9 Sepsis, unspecified organism (principal); N12 Tubulo-interstitial nephritis, not specified as acute or chronic; E87.6 Hypokalemia
CPT/HCPCS: 36415; 71275; 74177; 80048; 80053; 80061; 81001; 83605; 83735; 85007; 85014; 85018; 85025; 85048; 85049; 87040; 87070; 87077; 87086; 87186; 87205; 87636; 93005; 99285; J0131; J0696; J1956; J2405; J2543; Q9967

== ENCOUNTER 2023-10-02 15:40 | Emergency (ER) | payer OTHER, MEDICAID, SELFPAY ==
--- NOTE | 2023-10-02 15:44 | EXP.UTC ---
Discharge Plan Disposition Patient Disposition: Home, Self-Care Condition: Good Prescriptions Prescriptions: New prednisone 20 mg tablet 20 mg PO BID Qty: 10 0RF pseudoephedrine HCl [Sudafed 12 Hour] 120 mg tablet extended release 120 mg PO BID PRN (Reason: nasal congestion) Qty: 20 0RF Referrals Follow up/Referrals: Provider,Referral, MD [Primary Care Provider] - See instructions Clinical Impressions Clinical Impression: Upper respiratory infection Instructions Patient Instructions: DI for Viral Upper Respiratory Infection -- Adult Discharge ED [place] Nella Gi[place] [facility] [place] General Stated complaint: st runny nose congestion fever ba Time Seen by Provider: 10/02/23 16:32 History of Present Illness Provider Complaint: Runny nose, cough, congestion, fever, sore throat X 2 days Onset (ago): day(s) (2) Relieving factors: none Exacerbating factors: none Associated symptoms: cough and fever/chills Treatments prior to arrival: none Related Data Previous Rx's Medication Instructions Recorded prednisone 20 mg tablet 20 mg PO BID #10 tabs 10/02/23 pseudoephedrine HCl 120 mg 120 mg PO BID PRN nasal congestion 10/02/23 tablet,extended release (Sudafed #20 tabs 12 Hour) Allergies Allergy/AdvReac Type Severity Reaction Status Date / Time sulfamethoxazole Allergy Verified 12/23/22 11:13 [From Bactrim] trimethoprim [From Bactrim] Allergy Verified 12/23/22 11:13 [facility] Disclaimer: The information contained in this section may have been updated after the patient was seen, as this information can be updated by other users. Family History (Updated 05/09/23 @ 23:09 by Lara Kruger RN) Family history of cancer Father Social History Smoking Status: Never smoker alcohol intake: never current occupational status: employed Travel in the last 8 weeks: None ROS Obtained: Yes All systems reviewed & no additional complaints except as documented Constitutional Constitutional: Reports fever(s) and Reports headache(s) ENT Ears, Nose, Mouth, and Throat: Reports headache(s), Reports nasal congestion and Reports sore throat Respiratory Respiratory: Reports chest congestion and Reports cough Neurologic Neurologic: Reports headache(s) Physical Exam General General appearance: alert and in no apparent distress Head Head exam: atraumatic and normocephalic Eye Eye exam: Present normal appearance, PERRL and EOMI ENT ENT exam: Present normal exam, mucous membranes moist and normal external ear exam Expanded ENT Exam Throat exam: Present tonsillar erythema Neck Neck exam: Present normal inspection, full ROM and trachea midline; Absent tenderness Chest Chest inspection: Present normal inspection and symmetric chest wall rise; Absent tenderness Respiratory Respiratory exam: Present normal lung sounds bilaterally; Absent respiratory distress, wheezes, stridor or accessory muscle use Cardiovascular Cardiovascular exam: Present normal rhythm and tachycardia Abdominal Exam Abdominal exam: Present soft and tenderness (suprapubic); Absent distention, guarding, rebound or rigidity Extremities Exam Extremities exam: Present normal inspection, full ROM and normal capillary refill; Absent tenderness or edema Back Exam Back exam: Present normal inspection, full ROM and CVA tenderness (R); Absent tenderness Neurological Exam Neurological exam: Present alert, oriented X3, CN II-XII intact and normal gait; Absent motor sensory deficit Psychiatric Psychiatric exam: Present normal affect and normal mood Skin Skin exam: Present warm and dry Medical Decision Making Amrit Inquiry Pt receiving controlled substance: No Lab Data Lab results reviewed: Yes I reviewed the patient's lab results.
[2023-10-02 16:00] VITALS: BP 135/83; PULSE 101; RESP 19; TEMP 36.9; O2SAT 97; BMI 27.1
[2023-10-02 16:30] LABS: UTC Influenza A Antigen Negative (Negative); UTC Strep Screen (Rapid) Negative (Negative)
[2023-10-02 16:35] LABS: UTC Influenza B Antigen Negative (Negative)
[2023-10-02 16:40] VITALS: BP 135/83; PULSE 101; RESP 19; TEMP 36.9; O2SAT 97
== END 2023-10-02 16:43 | disposition home or self-care (01) ==
PROVIDERS: Emergency Provider Physician Assistant
DX: J06.9 Acute upper respiratory infection, unspecified (principal); R50.9 Fever, unspecified; R05.9 Cough, unspecified; R09.81 Nasal congestion; R07.0 Pain in throat
CPT/HCPCS: 87804; 87880; 99212; 99214; G0463

== ENCOUNTER 2024-07-12 12:09 | Emergency (ER) | payer OTHER, SELFPAY ==
[2024-07-12 12:40] VITALS: BP 108/72; PULSE 95; RESP 16; TEMP 36.9; O2SAT 100; BMI 29.5
--- NOTE | 2024-07-12 12:54 | EXP.UTC ---
Discharge Plan Disposition Patient Disposition: Home, Self-Care Condition: Good Prescriptions Prescriptions: New benzonatate 100 mg capsule 100 mg PO TIDP PRN (Reason: Cough) Qty: 30 0RF ondansetron 4 mg Tablet,Disintegrating 4 mg PO Q8H PRN (Reason: Nausea) Qty: 12 0RF Referrals Follow up/Referrals: Provider,Referral, MD [Primary Care Provider] - See instructions Activity Restrictions/Add. Instructions Additional Instructions/Restrictions: Drink plenty of fluids. Take tylenol or ibuprofen for pain or fever. Take the medications as directed. Follow up with your regular doctor. GO TO THE ER FOR ANY WORSENING SYMPTOMS Clinical Impressions Clinical Impression: Acute viral syndrome Stand Alone Forms Stand Alone Forms: Work/School Release Instructions Patient Instructions: DI for Viral Syndrome Print Language Print Language: Jordanian Discharge ED Provider: Torsten Jimenez [facility] General Stated complaint: cough, congestion, diarrhea Mode of Arrival: Ambulatory Source of Information: Patient Limitations: No Limitations Time Seen by Provider: 07/12/24 12:54 Description of Symptoms (Recalled from Triage Doc. by RN): PATIENT C/O COUGH, FEVER, CONGESTION, AND BODY ACHES SINCE YESTERDAY HEENT Symptoms (Recalled from RN notes): Yes Resp Symptoms (Recalled from RN notes): Yes Skin Symptoms (Recalled from RN notes): No MS Symptoms (Recalled from RN notes): No Functional Status (Recalled from RN notes): WNL Related Data Previous Rx's ?Medication ?Instructions ?Recorded benzonatate 100 mg capsule 100 mg PO TIDP PRN Cough #30 caps 07/12/24 ondansetron 4 mg disintegrating 4 mg PO Q8H PRN Nausea #12 tabs 07/12/24 tablet Allergies Allergy/AdvReac Type Severity Reaction Status Date / Time Penicillins Allergy Unknown Verified 07/12/24 12:52 allergy reaction sulfamethoxazole Allergy Unknown Verified 07/12/24 12:52 [From Bactrim] allergy reaction trimethoprim [From Bactrim] Allergy Unknown Verified 07/12/24 12:52 allergy reaction Worker's Comp Is this a Worker's Comp case?: No [facility] Disclaimer: The information contained in this section may have been updated after the patient was seen, as this information can be updated by other users. Family History (Updated 05/09/23 @ 23:09 by Lara Kruger RN) Father Family history of cancer Social History Smoking Status: Never smoker alcohol intake: never current occupational status: employed Travel in the last 8 weeks: None ROS Obtained: Yes All systems reviewed & no additional complaints except as documented Constitutional Constitutional: Reports chills and Reports fever(s) Eyes Eyes: Denies eye discharge ENT Ears, Nose, Mouth, and Throat: Reports as per HPI Cardiovascular Cardiovascular: Denies chest pain Respiratory Respiratory: Denies chest congestion and Reports cough Gastrointestinal Gastrointestingal: Reports nausea; Denies abdominal pain, constipation, cramping, diarrhea or vomiting Musculoskeletal Musculoskeletal: Denies arthralgias Integumentary/Breasts Skin/Breast: Denies rash Neurologic Neurologic: Denies paresthesias Physical Exam General General appearance: alert and in no apparent distress Head Head exam: atraumatic, normocephalic and normal inspection Eye Eye exam: Present normal appearance, PERRL and EOMI ENT ENT exam: Present mucous membranes moist and normal external ear exam Expanded ENT Exam TM/Canal exam: Bilateral TM: erythema and bulging Nose exam: Absent sinus tenderness Mouth exam: Present normal external inspection; Absent drooling Teeth exam: Present normal inspection Throat exam: Present tonsillar erythema, tonsillomegaly and tonsillar exudate Neck Neck exam: Present normal inspection, full ROM and trachea midline; Absent tenderness, meningismus or lymphadenopathy Chest Chest inspection: Present normal inspection and symmetric chest wall rise; Absent tenderness Respiratory Respiratory exam: Present normal lung sounds bilaterally; Absent respiratory distress, wheezes, stridor or accessory muscle use Cardiovascular Cardiovascular exam: Present regular rate and normal rhythm; Absent systolic murmur or diastolic murmur Abdominal Exam Abdominal exam: Present soft and normal bowel sounds; Absent distention, tenderness, guarding, rebound or rigidity Extremities Exam Extremities exam: Present normal inspection and normal capillary refill; Absent calf tenderness Back Exam Back exam: Present normal inspection and full ROM; Absent tenderness, CVA tenderness (R) or CVA tenderness (L) Neurological Exam Neurological exam: Present alert, oriented X3 and CN II-XII intact Psychiatric Psychiatric exam: Present normal affect and normal mood Skin Skin exam: Present warm, dry, intact and normal color Medical Decision Making Medical Records Medical records reviewed: No I reviewed the patient's medical records. Screening: Per USPSTF and CDC recommendations, given the prevalence of disease in our region, it is our hospital?s policy to screen for HIV and viral Hepatitis for all patients aged 18 and over and those with ongoing risk factors. Amrit Inquiry Pt receiving controlled substance: No Vital Signs: 07/12/24 12:40 Temperature 98.4 F Temperature Source Oral Pulse Rate [Left Brachial] 95 H Respiratory Rate 16 Blood Pressure [Left Arm] 108/72 L Blood Pressure Mean [Left Arm] 84 Blood Pressure Source [Left Arm] Automatic Cuff Blood Pressure Position [Left Arm] Sitting 02 Sat by Pulse Oximetry 100 Oxygen Delivery Method Room Air Lab Data Lab results reviewed: Yes I reviewed the patient's lab results.
[2024-07-12 13:03] LABS: UTC Influenza A Antigen Negative (Negative); UTC Influenza B Antigen Negative (Negative)
[2024-07-12 13:34] VITALS: BP 108/72; PULSE 95; RESP 16; TEMP 36.9; O2SAT 100
[2024-07-12 14:01] LABS: Influenza A, PCR Not Detected (NotDetected); Influenza B, PCR Not Detected (NotDetected)
[2024-07-12 14:46] LABS: Coronavirus 19, PCR Detected (NotDetected)
== END 2024-07-12 13:37 | disposition home or self-care (01) ==
PROVIDERS: Emergency Provider Nurse Practitioner Family
DX: B34.9 Viral infection, unspecified (principal)
CPT/HCPCS: 87636; 87804; 99213; G0381